=== PATIENT | male | born 2000 | race Caucasian/White ===

== ENCOUNTER → 2022-04-13 18:56 | Emergency (ER) | payer OTHER | END | disposition home or self-care (01) | LOC: DL.ED 18:56 | DX: S86.911A Strain of unspecified muscle(s) and tendon(s) at lower leg level, right leg, initial encounter (principal); V49.40XA Driver injured in collision with unspecified motor vehicles in traffic accident, initial encounter; Y92.410 Unspecified street and highway as the place of occurrence of the external cause | CPT/HCPCS: 72040; 73590-RT; 99283; 99284 ==